=== PATIENT | female | born 1965 ===

== ENCOUNTER → 2024-04-11 | Day surgery (SDC) | payer OTHER | END | disposition home or self-care (01) | LOC: JRADUS-SUR 08:15 | PROVIDERS: ATTEND Obstetrics & Gynecology | PROC: 0H9U3ZX Drainage of Left Breast, Percutaneous Approach, Diagnostic (ICD-10-PCS; principal; 2024-04-11) | DX: N60.32 Fibrosclerosis of left breast (principal) | CPT/HCPCS: 19083; 77065-TC; 87899; 88305-TC; A4648 ==